=== PATIENT | female | born 1990 | race Two or more races ===

== ENCOUNTER 2024-10-29 20:59 | Emergency (ER) | payer MEDICAID, SELFPAY ==
[2024-10-29 22:21] VITALS: BP 95/63; PULSE 68; RESP 16; TEMP 36.2; O2SAT 96
--- NOTE | 2024-10-29 22:57 | EDNOTE_ITS ---
ED General RME/HPI General Chief complaint: General Adult/Misc Complain Stated complaint: NEED MEDICATION Time Seen by Provider: 10/29/24 22:37 Arrival date/time: 10/29/24 20:59 34F with history of intellectual disability, DM, and seizures presents to ED with caregiver needing refill of 500 mg acetazolamide for recent eye surgery. Patient's prescriber forgot to give refills, but they will see him on Friday. Limitations: no limitations Related Data Home Medications ?Medication ?Instructions ?Recorded ?Confirmed Metformin Hcl 500 mg PO QDAY ##0 05/12/09 glyburide 5 mg tablet 5 mg PO BID ##0 05/12/09 Previous Rx's ?Medication ?Instructions ?Recorded acetazolamide 500 mg 500 mg PO QDAY 7 days #7 cap s 10/29/24 capsule,extended release Allergies Allergy/AdvReac Type Severity Reaction Status Date / Time No Known Allergies Allergy Verified 10/29/24 21:03 Review of Systems Review of Systems Systems Reviewed: All systems reviewed, normal except as documented Constitutional Constitutional: Reports system reviewed and no additional complaints, except as documented, Denies fever(s) and Denies headache(s) ENT Ears, Nose, Mouth, and Throat: Denies disequilibrium and Denies headache(s) Cardiovascular Cardiovascular: Reports system reviewed and no additional complaints, except as documented, Denies chest pain and Denies dyspnea Respiratory Respiratory: Reports system reviewed and no additional complaints, except as documented, Denies cough and Denies dyspnea Gastrointestinal Gastrointestinal: Reports system reviewed and no additional complaints, except as documented, Denies abdominal pain, Denies nausea and Denies vomiting Neurologic Neurologic: Reports system reviewed and no additional complaints, except as documented, Denies confusion, Denies disequilibrium and Denies headache(s) Psychiatric Psychiatric: Denies confusion Past Medical History Social History SMOKING STATUS: Never smoker ED Exam General Limitations: Present no limitations General appearance: Present alert and in no apparent distress Head Head exam: Present atraumatic Eye Eye exam: Present normal appearance, PERRL and EOMI ENT ENT exam: Present normal exam, normal oropharynx and mucous membranes moist Neck Neck exam: Present normal inspection, full ROM and trachea midline Chest Chest inspection: Present normal inspection and symmetric chest wall rise Respiratory Respiratory exam: Present normal lung sounds bilaterally Cardiovascular Cardiovascular exam: Present regular rate, normal rhythm and normal heart sounds Abdominal Exam Abdominal exam: Present soft and normal bowel sounds Extremities Exam Extremities exam: Present normal inspection and full ROM Back Exam Back exam: Present normal inspection and full ROM Neurological Exam Neurological exam: Present alert, oriented X3 and CN II-XII intact Psychiatric Psychiatric exam: Present normal affect and normal mood Skin Skin exam: Present warm, dry, intact and normal color Course Course Course Narrative: 34F with history of intellectual disability, DM, and seizures presents to ED with caregiver needing refill of 500 mg acetazolamide for recent eye surgery. Patient's prescriber forgot to give refills, but they will see him on Friday. Physical exam reveals clear lungs. RRR. Patient is afebrile, calm, and alert. Meds given. 1 week refill given. 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 Social determinants that could affect healthcare access:: none Patient has the following chronic illnesses:: seizures, intellectual disability, and DM How is presenting disease/condition affected by chronic disease/condition?: uneffected by Evaluation data The following diagnostics were reviewed and interpreted by me:: other (specify) (none) Lab and/or radiology exams considered but not ordered:: not ordered Interpretation Summary: n/a Medications Medications considered but not ordered:: ordered Medication administrations:: Medication Administration History Discontinued Medications Acetazolamide (Acetazolamide 250 Mg Tablet) 500 mg PO X1 ONE Stop: 10/29/24 22:38 above Consultations Consultation(s) initiated? (list below): No Diagnosis Differential Diagnosis ED Complaint MDM: medication refill, intellectual disability, cataracts Most likely diagnosis given after review of the tests above:: medication refill Admission Indicated Admission indicated?: not indicated Explain why admission is indicated or not indicated:: outpatient Admission Request Was there a request for admission?: No Disposition Plan Disposition Plan: Discharge Discharge Attestation Discharge Attestation: The patient and all family members were given an opportunity to ask questions and understood the discharge instructions. Discharge instructions specifically effects, indications for sooner follow up or return to the emergency department, and the expected course of current diagnosis. Patient condition: Stable Medical Decision Making Differential Diagnosis Differential Diagnosis: medication refill, intellectual disability, cataracts Discharge Plan Plan Patient Disposition: HOME (Self Care) Disposition Comment: Stable Prescriptions/Referrals Prescriptions/Med Rec: New acetazolamide 500 mg capsule, extended release 500 mg PO QDAY 7 Days Qty: 7 0RF No Action glyburide 5 MG tablet 5 mg PO BID Qty: 0 Patient Comments: 2 TABLETS TWICE DAILY Metformin Hcl 500 MG tablet 500 mg PO QDAY Qty: 0 Patient Comments: 2 TABLETS TWICE A DAY Problem List Clinical Impression: Medication refill Patient/Caregiver Discharge Instructions Additional Instructions: Please follow-up with PCP within 24-48 hours and return immediately if symptoms worsen. Print Language: Indonesian Stand Alone Forms: Patient Portal Info Letter PEÑA/SD Supervising Physician YOAN Supervising Physician: Dr. Silverio
[2024-10-30] MEDS: ACETAzolaMIDE 250 MG TABLET 500 MG PO
== END 2024-10-30 00:08 | disposition home or self-care (01) ==
LOC: SERX 23:23
PROVIDERS: Emergency Provider Emergency Medicine; PCP Family Medicine
DX: Z76.0 Encounter for issue of repeat prescription (principal); F79 Unspecified intellectual disabilities; E11.9 Type 2 diabetes mellitus without complications; Z98.890 Other specified postprocedural states
CPT/HCPCS: 99282; A9270